=== PATIENT | male | born 1940 | race Caucasian/White ===

== ENCOUNTER 2017-10-01 06:12 | Outpatient (CLI) | payer MEDICARE ==
[~2017-10-01] VITALS: Ht 180.3 cm; Wt 95.5 kg
[~2017-10-01 06:12] MED LIST: BAYER CHEWABLE81 MG PO; HYDROCODON-ACE1 EAC7 PO; MOBIC7.5 MG PO; PRAVACHOL20 MG PO; TOPROL XL50 MG PO; ZANTAC150 MG PO; ZESTORETIC 20-1 EACH PO
[2017-10-01 07:23] LABS: BASOPHILS 0.7 % (0-2); EOSINOPHILS 3.7 % (0-7); HEMATOCRIT 41.9 % (42.0-54.0); HEMOGLOBIN 13.7 g/dL (13.5-17.5); IMMATURE GRANULOCYTES 0.1 % (0-5); LYMPHOCYTES 14.4 % (15-50); MCH 29.4 pg (26.0-34.0); MCHC 32.7 g/dL (31.0-37.0); MCV 89.9 fL (80.0-100.0); MEAN PLATELET VOLUME 11.6 fL (7.4-10.4); MONOCYTES 10.9 % (2-11); NEUTROPHILS 70.2 % (40-80); RBC 4.66 10x6/uL (4.20-6.10); RDW 16.4 % (11.5-14.5); WBC 7.4 10x3/uL (4.8-10.8)
[2017-10-01 07:27] LABS: ANION GAP 11.4 mmol/L (8-16); CALCIUM 8.6 mg/dL (8.5-10.1); CARBON DIOXIDE 28.8 mmol/L (21.0-32.0); CREATININE - SERUM 1.1 mg/dL (0.6-1.3); POTASSIUM - SERUM 4.2 mmol/L (3.5-5.1)
[2017-10-01 07:29] LABS: APTT 33.6 SECONDS (22.8-39.4); INR 1.18 (0.85-1.17); PROTIME 14.5 SECONDS (11.6-15.0)
[2017-10-01 07:50] LABS: PLATELET COUNT 93 10x3/uL (130-400)
[2017-10-01 07:51] LABS: PLATELET ESTIMATE DECREASED
[2017-10-01 08:37] VITALS: BP 136/90; Ht 180.3 cm; Wt 95.5 kg
--- NOTE | 2017-10-01 09:50 | NUR ---
RETURNED FROM IR POST BONE MARROW BIOPSY. SEE POST PROCEDURE VITAL SIGN SHEET FOR VITAL SIGNS.
--- NOTE | 2017-10-01 10:54 | NUR ---
UP TO BATHROOM, GAIT STEADY. VOIDED WITHOUT DIFFICULTY. LOWER BACK DRESSING IS C/D/I. VITAL SIGNS STABLE. IV REMOVED INTACT.
== END 2017-10-01 11:30 | disposition home or self-care (01) ==
LOC: D.OPS 06:12 → D.SP 09:00 → D.OPS 09:00
PROVIDERS: General Practice
DX: D69.6 Thrombocytopenia, unspecified (principal); Z01.812 Encounter for preprocedural laboratory examination

== ENCOUNTER → 2017-12-03 08:10 | Outpatient (CLI) | payer MEDICARE ==
[2017-10-01 08:37] VITALS: BMI 29.3
--- NOTE | ~2017-12-03 | EC ---
PATIENT:JEAN ALDRICH DATE OF SERVICE: 12/03/17 SEX: M MEDICAL RECORD: [id number] DATE OF : 38 LOCATION:[facility] AGE OF PATIENT: 77 ADMISSION DATE: 12/03/17 REFERRING PHYSICIAN: INTERPRETING PHYSICIAN: TANYA PÉREZ MD ECHOCARDIOGRAM REPORT ECHO CHARGES 4 ECHO COMPLETE CLINICAL DIAGNOSIS: DYSPNEA ECHOCARDIOGRAPHIC MEASUREMENTS (adult normal given) AC root (d.<3.7cm) 3.7 cm LV Septum d (<1.2 cm> 1.3 cm Valve Excursion 2.2 cm LV Septum (systole) 1.7 cm Left Atria (s.<4.0cm> 4.1 cm LVPW d(<1.2cm) 1.1 cm RV (d.<2.3cm) 3.8 cm LVPW (sytole) 1.5 cm LV diastole(<5.6CM) 6.2 cm MV E-F(>70mm/sec) cm LV systole 5.1 cm LVOT Diameter 2.2 cm MV exc.(>10mm) cm Est.ejection fraction (50-75%) % Pericardial Effusion N DOPPLER: LVIT cm/sec A cm/sec E 97.0 cm/sec LA cm/sec RVSP 43.4 mmHg LVOT 44.0 cm/sec AOP1/2T m/s Asc. Ao 83.0 cm/sec RVOT 169 cm/sec RA cm/sec PA 56.0 cm/sec AV Gradient Peak 2.8 mmHg AV Mean 1.5 mmHg AV Area 2.2 cm MV Gradient Peak 4.1 mmHg MV Mean 1.2 mmHg MV Area cm COMMENTS: [employer] Window Repairer: 1 KIRIT CARREON Technical Aide: 2 Dr. Leonard TAPE# PACS DATE OF SERVICE: 12/03/2017 PROCEDURE: Echocardiogram. FINDINGS: 1. Left ventricular chamber size is dilated. Left ventricular systolic function is markedly reduced, overall ejection fraction 20%. 2. Left atrium is enlarged at 4.1 cm. Right atrium and right ventricle chamber sizes are moderately dilated. 3. Valvular structures have normal structure and motion. ECHOCARDIOGRAM REPORT [id number] JEAN ALDRICH 4. Doppler interrogation reveals moderate mitral regurgitation, moderate tricuspid regurgitation, no other valvular insufficiency or stenosis. Pulmonary systolic pressure is estimated at 44 mmHg. 5. No evidence of pericardial effusion or left ventricular thrombus. TRANSINT:[id number] Voice Confirmation ID: [id number] DOCUMENT ID: [id number] TANYA PÉREZ MD at 1800 CC: PEDRO KANG [id number] DICTATION DATE: 12/03/17 1007 DE ICER INSTALLER: 12/03/17 1103 [facility] [address] [id number]
== END | disposition home or self-care (01) ==
LOC: D.ECHO 08:10
DX: R06.00 Dyspnea, unspecified (principal)